=== PATIENT | male | born 1990 | race Two or more races ===

== ENCOUNTER 2019-03-31 00:09 | Inpatient (IN) | payer MEDICAID ==
[~2019-03-31] VITALS: Ht 172.7 cm; Wt 60.8 kg
--- NOTE | 2019-03-31 00:16 | NUR ---
PT TAKEN TO BED 9
[2019-03-31] MEDS ORDERED: NACL 0.9% 1,000 ML IV SCH (00:24)
[2019-03-31 00:25] VITALS: BP 131/78
[2019-03-31] MEDS ORDERED: cefTRIAXone 1,000 MG in DEXT 5% MINI-BAG PLUS 50 ML IV ONE (00:25)
[2019-03-31] MEDS ORDERED: KETOROLAC 30 MG/ML VIAL IVP ONE (00:25)
--- NOTE | 2019-03-31 00:27 | NUR ---
ASSESSMENT COMPLETED AT THIS TIME. PATIENT SITTING UP IN BED, MOTHER IN ROOM. BED IN LOW LOCKED POSITON WITH SIDE RAIL UP X1. NO NEEDS STATED AT THIS TIME.
--- NOTE | 2019-03-31 00:47 | NUR ---
X-Ray at bedside.
[2019-03-31 00:48] LABS: APPEARANCE,URINE CLEAR (CLEAR); BILIRUBIN,URINE 1+ (NEGATIVE); BLOOD, URINE NEGATIVE (NEGATIVE); COLOR,URINE YELLOW (YELLOW); LEUKOCYTE ESTERASE ,URINE NEGATIVE (NEGATIVE); NITRITE, URINE NEGATIVE (NEGATIVE); UGLUCOSE NEGATIVE (NEGATIVE)
[2019-03-31] MEDS ORDERED: cefTRIAXone 1,000 MG VIAL ONE (00:50)
--- NOTE | 2019-03-31 00:52 | NUR ---
Dr. West examining patient.
[2019-03-31 00:57] LABS: RBC,URINE 0-5 /HPF (0-5); WBC,URINE 0-5 /HPF (0-5)
[2019-03-31 00:58] LABS: BASOPHILS % (AUTO) 0.3 % (0.0-2.0); EOSINOPHILS # (AUTO) 0.1 K/uL (0-0.4); EOSINOPHILS % (AUTO) 1.2 % (0.0-4.0); HEMATOCRIT 45.2 % (36-52); HEMOGLOBIN 15.2 g/dL (12.0-18.0); LYMPHOCYTES # (AUTO) 2.3 K/uL (2.0-11.5); LYMPHOCYTES % (AUTO) 22.1 % (20.5-51.1); MEAN CORPUSCULAR HEMOGLOBIN 29 pg (27-31); MEAN CORPUSCULAR HGB CONC 34 g/dL (33-37); MEAN CORPUSCULAR VOLUME 87.3 fL (80-94); MONOCYTES # (AUTO) 0.7 K/uL (0.8-1.0); NEUTROPHILS # (AUTO) 7.4 K/uL (1.8-7.7); NEUTROPHILS % (AUTO) 69.4 % (42.2-75.2); PLATELET COUNT (AUTO) 359 K/uL (140-450); RED BLOOD CELL COUNT(AUTO) 5.18 MIL/uL (4.20-6.10); RED CELL DISTRIBUTION WIDTH 13.1 % (11.6-13.7); WHITE BLOOD COUNT (AUTO) 10.6 K/uL (4.8-10.8)
[2019-03-31 01:07] LABS: ANION GAP 17.9 (8-16); CARBON DIOXIDE 24.2 mmol/L (21-32); POTASSIUM 4.1 mmol/L (3.5-5.1)
--- NOTE | 2019-03-31 01:07 | NUR ---
PT PLACED ON MONITOR. BED LOCKED AND IN LOW POSITION, X1 SIDE RAIL RAISED. VSS. MOTHER AT BEDSIDE. WILL CONTINUE TO MONITOR.
[2019-03-31 01:15] LABS: ALBUMIN 4.7 g/dL (3.4-5.0); TOTAL BILIRUBIN 0.4 mg/dL (0.0-1.0)
--- NOTE | 2019-03-31 01:29 | NUR ---
PT STATES DECREASE IN PAIN. 2/10 AT THIS TIME. PT POSITIONED FOR COMFORT. VSS. WILL CONTINUE TO MONITOR.
[2019-03-31] MEDS ORDERED: ONDANSETRON 4 MG/2 ML VIAL IM/IVP PRN (01:35)
[2019-03-31] MEDS ORDERED: DOCUSATE SODIUM 100 MG GELCAP PO PRN (01:35)
[2019-03-31] MEDS ORDERED: LORazepam 2 MG/ML VIAL IM/IVP PRN (01:35)
[2019-03-31] MEDS ORDERED: MORPHINE SULFATE 2 MG/ML SYR IVP PRN (01:35)
[2019-03-31] MEDS ORDERED: ZOLPIDEM 5 MG TAB PO PRN (01:35)
[2019-03-31] MEDS ORDERED: ACETAMINOPHEN 325 MG TAB PO PRN (01:35)
[2019-03-31 02:10] VITALS: BP 110/62
--- NOTE | 2019-03-31 02:10 | NUR ---
RECEIVED BEDSIDE REPORT FROM ED RN ABBY FOR PT'S CONTINUITY OF CARE. PT IS AAOX4, MOTHER AT BEDSIDE, ON STOPPER MAKER HELPER, HAS LEFT AC 18G SALINE LOCK, DENIES PAIN AT THIS TIME, JUST MILD DISCOMFORT. PHOTOGRAPH TAKEN OF THE ABSCESS AND SKIN IRRITATION ON ANTERIOR AND POSTERIOR PENIS, MD AWARE OF BOTH SKIN CONDITION. EXPLAINED TO PT THE SOFTWARE TEST MANAGER ROUTINE, AND THE PROCEDURES AND TESTS ORDERED. PT VERBALIZED UNDERSTANDING. PT TEACHING GIVEN REGARDING ELEVATION LEG TO MINIMIZE FRICTION ON THE ABSCESS. WILL MONITOR PT THROUGHOUT SHIFT.
--- NOTE | 2019-03-31 02:17 | NUR ---
Patient will be admitted to care of DR MARIANO. Admited to TELE. Will go to room 106A. Belongings list completed. Report to [facility].
[2019-03-31 02:28] LABS: BARBITURATE, URINE NEG. ng/ml (NEG <=200); BENZODIAZEPINE, URINE NEG. ng/mL (NEG <=200); CANNABINOID, URINE POS. ng/mL (NEG <=50); COCAINE, URINE NEG. ng/mL (NEG <=300); OPIATE, URINE NEG. ng/mL (NEG <=2000); PHENCYCLIDINE SCREEN,URINE NEG. ng/mL (NEG <=25)
[2019-03-31 02:36] LABS: CHOL/HDL RATIO 3.4 (1-4.5); MAGNESIUM 1.9 mg/dL (1.8-2.4); PHOSPHORUS 3.7 mg/dL (2.5-4.9); THYROID STIMULATING HORMONE 1.2 uIU/mL (0.34-3.74)
[2019-03-31 02:43] LABS: PROTHROMBIN TIME 10.5 secs (10.8-13.4)
[2019-03-31] MEDS: NACL 0.9% 1,000 ML IV SCH ×2 (03:00→18:41)
--- NOTE | 2019-03-31 03:00 | NUR ---
ADMINISTERED SCHEDULED IVF ORDERED. PT TEACHING GIVEN REGARDING IVF AND ABX. PT VERBALIZED UNDERSTANDING.
--- NOTE | 2019-03-31 04:00 | NUR ---
MD ORDERED PT TO BE TRANSFERRED TO MS. COLLECTED FRAME TABLE OPERATOR HELPER AND RETURNED TO RESPIRATORY CARE PRACTITIONER. EXPLAINED TO PT AND VERBALIZED UNDERSTANDING.
--- NOTE | 2019-03-31 06:00 | NUR ---
ADMINISTERED SCHEDULED IV ABX ORDERED. PT ASLEEP WITH NO SIGNS OF DISTRESS. WILL CONTINUE TO MONITOR PT.
[2019-03-31] MEDS ORDERED: AMPICILLIN/SULBACTAM 1.5 GM VIAL ONE (06:11)
[2019-03-31] MEDS: AMPICILLIN/SULBACTAM 1.5 GM in NACL 0.9% 50 ML IV SCH ×3 (06:20→17:18)
--- NOTE | 2019-03-31 06:30 | NUR ---
PATIENT HAS BEEN SCREENED AND CATEGORIZED LOW NUTRITION RISK. PATIENT WILL BE SEEN WITHIN 7 DAYS OF ADMISSION. 04/07/19 JAVIER BARNES MS, RDN
--- NOTE | 2019-03-31 06:32 | NUR ---
MD AT BEDSIDE WITH PT. SCD IN PLACE. DENIES ANY PAIN AT THIS TIME. WILL ENDORSE TO AM SHIFT RN FOR PT'S CONTINUITY OF CARE.
--- NOTE | 2019-03-31 07:20 | NUR ---
RECEIVED REPORT FROM PROJECT CONTROLS SCHEDULER NURSE. PATIENT LYING DOWN IN BED. NO DISTRESS NOTED. DENIES ANY PAIN. AAOX4, CALM, COOPERATIVE, SKIN COLOR APPROPRIATE TO ETHNICITY, WARM TO TOUCH. HAS LEFT THIGH INTACT ABSCESS. RESPIRATIONS EVEN, UNLABORED, ON ROOM AIR. IV SITE INTACT, PATENT, AND INFUSING IVF PER MD ORDERS. REVIEWED PLAN OF CARE WITH PATIENT. PATIENT VERBALIZED UNDERSTANDING. SAFETY MEASURES IN PLACE, CALL LIGHT WITHIN REACH. WILL CONTINUE TO MONITOR.
[2019-03-31 08:00] VITALS: BP 119/68
[2019-03-31] MEDS ORDERED: LIDOCAINE/EPI 1% 1:100000 20 ML VIAL INJ ONE (08:15)
[2019-03-31] MEDS ORDERED: HYDROmorphone 1 MG/ML AMP IVP PRN (08:15)
[2019-03-31] MEDS ORDERED: LIDOCAINE 1% 500 MG/50 ML VIAL INJ SCH (08:25)
--- NOTE | 2019-03-31 09:00 | NUR ---
DR. SCHULTZ AT BEDSIDE PERFORMING I&D ON LEFT THIGH ABSCESS. TIMEOUT PROCEDURE CONDUCTED. PATIENT TOLERATED PROCEDURE WELL. WILL CONTINUE TO MONITOR.
[2019-03-31] MEDS: LACTOBACILLUS RHAMNOSUS GG 1 EACH CAP PO SCH (10:13)
--- NOTE | 2019-03-31 10:13 | NUR ---
PATIENT LYING DOWN IN BED ON HIS PHONE. MOTHER AT BEDSIDE. NO DISTRESS NOTED. PAIN WITHIN TOLERABLE AT THIS TIME. SCHEDULED MEDICATIONS DUE GIVEN. WILL CONTINUE TO MONITOR.
[2019-03-31 11:13] LABS: RAPID PLASMA REAGIN NON-REACTIVE (Non Reactiv)
--- NOTE | 2019-03-31 12:40 | NUR ---
PATIENT LYING DOWN IN BED. NO DISTRESS NOTED. DENIES ANY PAIN. SCHEDULED MEDICATIONS DUE GIVEN. WILL CONTINUE TO MONITOR.
--- NOTE | 2019-03-31 15:30 | NUR ---
PATIENT LYING DOWN IN BED ON HIS PHONE. CONDITION UNCHANGED. DENIES ANY PAIN. WILL CONTINUE TO MONITOR.
[2019-03-31 16:00] VITALS: BP 111/49
--- NOTE | 2019-03-31 19:19 | NUR ---
GAVE REPORT TO CHIEF I DISPATCHER NURSE FOR CONTINUITY OF CARE. PATIENT IN STABLE CONDITION.
--- NOTE | 2019-03-31 19:19 | NUR ---
RECEIVED PT . AAOX4 , NID , S/P I & D OF THE LEFT POSTERIOR THIGH - DRESSING DRY AND INTACT , WITH BEARABLE PAIN HE SAID AT THIS TIME . IV SITE INTACT AND PATENT . PLAN OF CARE DISCUSSED AND VERBALIZED UNDERSTANDING- CALL LIGHT WITHIN REACH . ON SAFETY / FALL PRECAUTION PROTOCOL . WILL CONT. TO MONITOR.
[2019-03-31] MEDS: HYDROcodone/APAP 5/325 MG 1 TAB TAB PO PRN (21:29)
[2019-04-01] VITALS: BP 122/80
--- NOTE | 2019-04-01 | NUR ---
MADE ROUNDS , NO S/SX OF ACUTE DISTRESS NOTED AT THIS TIME - BEARABLE PAIN - MARKED THE BLOOD STAIN OF DRESSING - WILL WOF FOR BLEEDING.
[2019-04-01] MEDS: AMPICILLIN/SULBACTAM 1.5 GM in NACL 0.9% 50 ML IV SCH ×4 (00:09→17:40)
--- NOTE | 2019-04-01 02:00 | NUR ---
MADE ROUNDS . NO S/ SX OF ACUTE DISTRESS NOTED AT THIS TIME - CALL LOIGHT WITHIN REACH
[2019-04-01] MEDS: HYDROcodone/APAP 5/325 MG 1 TAB TAB PO PRN ×2 (02:35→10:58)
--- NOTE | 2019-04-01 06:20 | NUR ---
S/E BY BUD - NO FURTHER ORDER MADE.
[2019-04-01 07:10] LABS: BASOPHILS % (AUTO) 0.3 % (0.0-2.0); EOSINOPHILS # (AUTO) 0.3 K/uL (0-0.4); EOSINOPHILS % (AUTO) 2.7 % (0.0-4.0); HEMATOCRIT 43.1 % (36-52); HEMOGLOBIN 14.5 g/dL (12.0-18.0); LYMPHOCYTES # (AUTO) 2.3 K/uL (2.0-11.5); MEAN CORPUSCULAR HEMOGLOBIN 30 pg (27-31); MEAN CORPUSCULAR HGB CONC 34 g/dL (33-37); MONOCYTES # (AUTO) 0.9 K/uL (0.8-1.0); MONOCYTES % (AUTO) 8.7 % (1.7-9.3); NEUTROPHILS # (AUTO) 6.6 K/uL (1.8-7.7); NEUTROPHILS % (AUTO) 65.3 % (42.2-75.2); PLATELET COUNT (AUTO) 353 K/uL (140-450); RED CELL DISTRIBUTION WIDTH 13.4 % (11.6-13.7); WHITE BLOOD COUNT (AUTO) 10.1 K/uL (4.8-10.8)
[2019-04-01 07:13] LABS: ANION GAP 12.1 (8-16); CARBON DIOXIDE 27.9 mmol/L (21-32); CREATININE 0.8 mg/dL (0.7-1.3)
--- NOTE | 2019-04-01 07:22 | NUR ---
ENDORSED TO AM SHIFT WITH STABLE CONDITION.
--- NOTE | 2019-04-01 07:27 | NUR ---
RECEIVED PT FROM REAL ESTATE AGENCY PRINCIPAL NURSE, KULDEEP, PT IS AWAKE AND LYING ON THE BED WITH IV LINE ON THE LEFT AC G.18 WITH NS INFUSING AT 60ML/HR, PT IS S/P I&D ON THE LEFT POSTERIOR ASPECT OF THE THIGH, REINFORCED WITH DRESSING, PT DENIES PAIN AND NO SIGN OF DISTRESS NOTED. WILL MONITOR PT.
[2019-04-01 08:00] VITALS: BP 119/67
--- NOTE | 2019-04-01 08:35 | NUR ---
DC PLANNING 29 YRS OLD MALE PT WAS ADMITTED FROM HOME WITH A DX OF LEFT LEG ABSCESS. PT HAS NO MEDICAL HX . ADMINISTERED UNASYN, IVF , C-XRAY NEGATIVE BLOOD AND URINE CULTURE PENDING DR MONSIVAIS CONSULT.DC PLAN PER MD ORDER CM TO FOLLOW
[2019-04-01] MEDS ORDERED: ACYCLOVIR 200 MG CAP PO SCH (09:30)
[2019-04-01] MEDS: LACTOBACILLUS RHAMNOSUS GG 1 EACH CAP PO SCH (10:57)
[2019-04-01] MEDS: NACL 0.9% 1,000 ML IV SCH (10:59)
--- NOTE | 2019-04-01 11:20 | NUR ---
WOUND SWAB FOR THE AEROBIC AND ANAEROBIC CULTURE WAS DONE TO PT NOW AND SAMPLE WAS SENT TO LAB. W
--- NOTE | 2019-04-01 11:23 | NUR ---
WOUND ASSESSMENT AND DRESSING CHANGE WAS DONE BY WOUND CARE NURSEPREM ON THE BEDSIDE, WOUND CARE AND DRESSING CHANGE WAS TAUGHT TO PT AND PT VERBALIZED UNDERSTANDING.
--- NOTE | 2019-04-01 11:45 | NUR ---
WOUND CARE EVALUATION NOTES: REASON FOR EVALUATION: S/P LEFT POSTERIOR LEG I&D WOUND ASSESSMENT DONE ON WITH THIS 29 Y/O MALE PATIENT ADMITTED TO [facility] WITH INITIAL DIAGNOSIS OF ABSCESS. PT IS AAX4. DRESSING CHANGED AND WOUND CARE INSTRUCTIONS GIVEN. PT. VERBALIZES UNDERSTANDING. PLAN OF CARE DISCUSSED WITH PRIMARY RN AND PT. PT. VERBALIZES UNDERSTANDING. PRIMARY RN CONTINUE TO TEACH PT. AND FAMILY MEMBERS FOR WOUND DRESSING CHANGE. PT. STATED THAT MOTHER CAN HELP WITH DRESSING CHANGE DAILY. INTEGUMENTARY: -SURGICAL WOUND TO LEFT POSTERIOR LEG, 1X1.1X0.8CM, UNDERMINING @12 OCLOCK 1CM DEEP, WOUND BED 100% GRANULATING TISSUE, MOIS WOUND BED, NO ODOR, KAVON WOUND SKIN ERYTHEMA WITH INTACT SKIN. RECOMMENDATIONS: -CLEANSE LEFT POSTERIOR LEG WOUND WITH NS. PAT DRY PACK WITH ADAPTIC DRESSING AND COVER WITH DRY DRESSING, SECURE WITH TAPE QD AND PRN IF SOILING -KEEP AREA DRY AND CLEAN AT ALL TIME -CONTINUE WOUND CARE TEACHING TO PT. AND FAMILY MEMBERS -PLEASE FOLLOW UP WITH PCP 7-10 DAYS AFTER DISCHARGED -PLEASE DISCHARGED WOUND CARE SUPPLIES X2 WEEKS PLEASE CONTACT WOUND CARE NURSE FOR ANY QUESTIONS AND CHANGES IN SKIN CONDITION.
[2019-04-01] MEDS: ACYCLOVIR 200 MG CAP PO SCH ×3 (12:05→17:36)
--- NOTE | 2019-04-01 13:16 | NUR ---
Federal Java Developer Assessment/Discharge Plan Basic Screen: Yes Name: [facility] Relationship: mother Pre-Admission Living Arrangements: Lives with Other Other: [facility], patient's nephews and nieces, and patient's brother Prior ADL Independent Current Home Health Name/Tel: N/A Current DME/02 Name/Tel: N/A Current Hospice Name/Tel: N/A Current Dialysis Name/Tel: N/A Healthcare Decision Maker: Patient Advance Directive No Physician Orders for Life Sustaining Treatment Form No Information Taught: Advance Directive Community Resources Person Taught: Patient Teaching Tools: Community Resources Computer Generated Print Verbal Factors Affecting Learning: None Participation Level: Active Evaluation: Gestures Understanding Verbalizes Understanding Educator: CAROL Cabrales Discipline: Case Mgt/Social Svcs Tentative Discharge Plan Summary: Patient is a 29 year old male, admitted for left leg abscess. I met with patient at bedside. Patient alert and oriented x4. Patient lives at home with his family and plans to return home upon discharge. Patient does not have a pcp at this time. He stated he went to an urgent care center located in [place], [place] recently. He is planning to find a pcp. I provided him with a list of low cost clinics. He denied hx of mental health. He also denied alcohol/substance abuse. Federal Java Developer and/or Operations Analyst will follow up as needed. Signature: CAROL Cabrales Date: Apr 01, 2019
--- NOTE | 2019-04-01 14:01 | NUR ---
PT WAS GIVEN ORAL MEDICATION NOW. WILL MONITOR PT.
--- NOTE | 2019-04-01 17:40 | NUR ---
PT WAS GIVEN ORAL AND IVPB MEDICATIONS, WILL MONITOR PT.
[2019-04-01 18:39] VITALS: BP 118/66
--- NOTE | 2019-04-01 19:15 | NUR ---
ENDORSED PT TO COTTON WEIGHER OPERATOR NURSEKULDEEP FOR CONTINUITY OF CARE.
--- NOTE | 2019-04-01 19:15 | NUR ---
RECIEVED PT AAOX4 , NID , IV SITE INTACT AND PATENT , DENIES ANY PAIN AT THIS TIME . SURGICAL SITE INTACT AND PATENT , PLAN OF CARE DISCUSSED AND VERBALIZED UNDERSTANDING . - CALL LIGHT WITHIN REACH . WILL CONT. TO MONITOR.
--- NOTE | 2019-04-01 22:00 | NUR ---
WATCHING TV - NO COMPLAIN MADE AT THIS TIME .
[2019-04-02] VITALS: BP 117/67
--- NOTE | 2019-04-02 | NUR ---
MADE ROUNDS . NO S/SX OF ACUTE DISTRES NOTED AT THIS TIME. CALL LIGHT WITHIN REACH.
[2019-04-02] MEDS: AMPICILLIN/SULBACTAM 1.5 GM in NACL 0.9% 50 ML IV SCH ×3 (00:18→12:53)
--- NOTE | 2019-04-02 04:00 | NUR ---
MADE ROUNDS . NO S/SX OF ACUTE DISTRESS NOTED AT THIS TIME. CALL L;IGHT WITHIN REACH.
[2019-04-02] MEDS: NACL 0.9% 1,000 ML IV SCH (05:15)
[2019-04-02] MEDS: HYDROcodone/APAP 5/325 MG 1 TAB TAB PO PRN ×2 (05:25→14:45)
[2019-04-02 06:31] LABS: BASOPHILS % (AUTO) 0.5 % (0.0-2.0); EOSINOPHILS # (AUTO) 0.3 K/uL (0-0.4); EOSINOPHILS % (AUTO) 4.2 % (0.0-4.0); HEMATOCRIT 43.1 % (36-52); HEMOGLOBIN 14.3 g/dL (12.0-18.0); LYMPHOCYTES # (AUTO) 2.6 K/uL (2.0-11.5); LYMPHOCYTES % (AUTO) 36.1 % (20.5-51.1); MEAN CORPUSCULAR HEMOGLOBIN 29 pg (27-31); MEAN CORPUSCULAR HGB CONC 33 g/dL (33-37); MEAN CORPUSCULAR VOLUME 88.2 fL (80-94); MONOCYTES # (AUTO) 0.7 K/uL (0.8-1.0); MONOCYTES % (AUTO) 9.1 % (1.7-9.3); NEUTROPHILS # (AUTO) 3.7 K/uL (1.8-7.7); NEUTROPHILS % (AUTO) 50.1 % (42.2-75.2); PLATELET COUNT (AUTO) 357 K/uL (140-450); RED BLOOD CELL COUNT(AUTO) 4.89 MIL/uL (4.20-6.10); RED CELL DISTRIBUTION WIDTH 13.2 % (11.6-13.7); WHITE BLOOD COUNT (AUTO) 7.3 K/uL (4.8-10.8)
[2019-04-02 06:52] LABS: PHOSPHORUS 4.2 mg/dL (2.5-4.9)
[2019-04-02 07:08] LABS: CHLAMYDIA TRACHOMATIS AMP DNA Negative (Negative)
--- NOTE | 2019-04-02 07:10 | NUR ---
ENDORSED TO AM SHIFT WITH STABLE CONDITION.
--- NOTE | 2019-04-02 07:15 | NUR ---
RECEIVED PT FROM DIGITAL FIELD SERVICE TECHNICIAN NURSE, KULDEEP, PT IS AWAKE AND LYING ON THE BED WITH SIDE RAILS UP AND CALL LIGHT WITHIN REACH, IV LINE ON THE LEFT AC G. 18 WITH NS INFUSING AT 60ML/HR, PT C/O PAIN RATE OF 3/10 ON HIS LEFT POSTERIOR THIGH, S/P I&D, NO SIGN OF DISTRESS NOTED AND WILL CONTINUE TO MONITOR PT.
[2019-04-02 07:23] LABS: ANION GAP 12.5 (8-16); CARBON DIOXIDE 29.5 mmol/L (21-32); CREATININE 0.8 mg/dL (0.7-1.3)
[2019-04-02 08:00] VITALS: BP 121/86
[2019-04-02] MEDS ORDERED: LACT-81 PO (08:48)
[2019-04-02] MEDS ORDERED: ACYC200C4 PO (08:48)
[2019-04-02] MEDS ORDERED: SULF-58 PO (08:48)
[2019-04-02] MEDS: LACTOBACILLUS RHAMNOSUS GG 1 EACH CAP PO SCH (09:40)
[2019-04-02] MEDS: ACYCLOVIR 200 MG CAP PO SCH ×2 (09:41→12:53)
--- NOTE | 2019-04-02 09:41 | NUR ---
PT IS AWAKE AND LYING ON THE BED, ORAL MEDICATION WAS GIVEN AND TOLERATED IT. WILL MONITOR PT.
--- NOTE | 2019-04-02 12:43 | NUR ---
PT WAS GIVEN ORAL AND IVPB MEDICATION NOW.
[2019-04-02] MEDS ORDERED: GAUZE TP SCH (13:00)
--- NOTE | 2019-04-02 15:00 | NUR ---
WOUND ASSESSMENT AND PICTURE WAS TAKEN AND ATTACHED TO CHART.
--- NOTE | 2019-04-02 15:30 | NUR ---
PT WAS TAUGHT HOW TO DO THE DRESSING CHANGE WITH MOTHER ON THE BEDSIDE, AND VERBALIZED UNDERSTANDING, WOUND SUPPLIES WERE GIVEN TO PT WELL.
--- NOTE | 2019-04-02 17:30 | NUR ---
DISCHARGED PT TO HOME WITH MOTHER VIA WHEELCHAIR, IV LINE AND ARM BAND REMOVED, DISCHARGED TEACHINGS, WOUND DRESSING AND MEDICATION INSTRUCTIONS WERE GIVEN TO PT AND VERBALIZED UNDERSTANDING, PT
[2019-04-02 17:35] VITALS: BP 118/77
== END 2019-04-02 17:50 | disposition home or self-care (01) | DRG 383 ==
LOC: MED 00:09 → MTU 01:32
PROVIDERS: ADMIT General Practice; ATTEND General Practice
PROC: 0J9M0ZX Drainage of Left Upper Leg Subcutaneous Tissue and Fascia, Open Approach, Diagnostic (ICD-10-PCS; principal; 2019-03-31)
DX: L02.416 Cutaneous abscess of left lower limb (principal); A60.01 Herpesviral infection of penis; R79.89 Other specified abnormal findings of blood chemistry; B96.89 Other specified bacterial agents as the cause of diseases classified elsewhere; F12.90 Cannabis use, unspecified, uncomplicated; K80.20 Calculus of gallbladder without cholecystitis without obstruction; E86.0 Dehydration; R82.4 Acetonuria; B95.61 Methicillin susceptible Staphylococcus aureus infection as the cause of diseases classified elsewhere; Z79.899 Other long term (current) drug therapy
CPT/HCPCS: 36415; 71045; 76700; 76881; 80048; 80053; 80305; 81001; 83036; 83605; 83690; 83735; 84100; 84134; 84443; 85025; 85610; 85730; 86592; 87040; 87070; 87075; 87081; 87086; 87186; 87205; 87491; 87529; J0295; J0696; J1170; J1885; J2001; J7030; J7060; Q0092

== ENCOUNTER 2019-04-03 13:18 | Emergency (ER) | payer MEDICAID ==
[~2019-04-03] VITALS: Ht 172.7 cm; Wt 67.1 kg
[~2019-04-03 13:18] MED LIST: ACYC200C4 PO; LACT-81 PO; SULF-58 PO
[2019-04-03 13:32] VITALS: BP 130/77
--- NOTE | 2019-04-03 13:38 | NUR ---
Patient ambulated to bed 12. RN evaluating patient at bedside.
--- NOTE | 2019-04-03 13:59 | NUR ---
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 PER PT WENT TO CLINIC FOR WOUND DRESSING, WAS SENT TO ER . PT CAME TO FOLLOW UP WITH THE WOUND. NO SWELLING OR FOUL SMELLING AT THE SITE. DENIES ANY FEVER , CHILLS . DENIES ANY PAIN AT THIS TIME. ER MD TO SEE THE PT. WILL CONTINUE TO MONITOR PT. HX: NONE RX: ACYLOVIR, BACTRIM
[2019-04-03 14:29] VITALS: BP 130/77
--- NOTE | 2019-04-03 14:30 | NUR ---
Patient discharged with v/s stable. Written and verbal after care instructions given and explained. Patient verbalized understanding. Ambulatory with steady gait. All questions addressed prior to discharge. Advised to follow up with PMD.
== END 2019-04-03 14:30 | disposition home or self-care (01) ==
LOC: MED 13:18
DX: Z48.01 Encounter for change or removal of surgical wound dressing (principal); Z79.899 Other long term (current) drug therapy; Z79.2 Long term (current) use of antibiotics
CPT/HCPCS: 99283